=== PATIENT | male | born 1975 | race African-American/Black ===

== ENCOUNTER 2018-03-23 08:14 | Emergency (ER) | payer OTHER ==
[~2018-03-23] VITALS: Ht 182.9 cm; Wt 104.5 kg
[2018-03-23 08:12] VITALS: TEMP 97.6
[2018-03-23] MEDS ORDERED: DEPO-TESTOS200 MG/M1 IM (11:58)
[2018-03-23] MEDS ORDERED: ADDERALL XR20 MG (11:59)
[2018-03-23] MEDS ORDERED: NEURONTIN100 MG/CAP PO (12:07)
[2018-03-23] MEDS ORDERED: VIAGRA100 M1 (12:07)
[2018-03-23] MEDS ORDERED: DESYREL 100MG100 MG PO (12:08)
[2018-03-23 12:21] VITALS: BP 147/97; PULSE 82
== END 2018-03-23 12:27 | disposition short-term general hospital (02) ==
LOC: COL.ER 08:14 → EDBD 08:18 → COL.ER 08:18
DX: N48.30 Priapism, unspecified (principal); Z98.52 Vasectomy status; Z86.018 Personal history of other benign neoplasm; Z98.890 Other specified postprocedural states
CPT/HCPCS: J2270; J2370; J7121

== ENCOUNTER → 2018-06-08 | Emergency (ER) | payer OTHER ==
[~2018-06-08] MED LIST: ADDERALL XR20 MG; DEPO-TESTOS200 MG/M1 IM; DESYREL 100MG100 MG PO; NEURONTIN100 MG/CAP PO; VIAGRA100 M1
== END ==
LOC: COL.ER 18:24
DX: Z72.9 Problem related to lifestyle, unspecified (principal)